=== PATIENT | male | born 1965 | race Two or more races ===

== ENCOUNTER 2020-05-26 16:55 | Inpatient (IN) | payer MEDICARE, MEDICAID ==
[~2020-05-26] VITALS: Ht 160 cm; Wt 83.1 kg
[2020-05-26] MEDS ORDERED: NITROGLYCERIN OINT 1GM/INCH UDPKT TD ONE (18:15)
[2020-05-26 18:31] LABS: BASOPHILS % 0.8 % (0.0-2.0); EOSINOPHILS % 1.1 % (0.0-5.0); HEMATOCRIT. 36.3 % (42.0-52.0); HEMOGLOBIN. 11.8 g/dL (14.0-18.0); LYMPHOCYTES % 20.3 % (20.0-50.0); MEAN CORPUSCULAR HEMOGLOBIN 30.9 pg (28.0-32.0); MEAN CORPUSCULAR VOLUME 95.1 fL (80.0-94.0); MEAN PLATELET VOLUME 9.2 fl (7.4-10.4); MONOCYTES % 8.7 % (2.0-8.0); NEUTROPHILS % 69.1 % (40.0-76.0); PLATELET 181 x1000/uL (130-400); RED BLOOD CELL COUNT 3.81 mill/uL (4.7-6.1); RED CELL DISTRIBUTION WIDTH 14.3 % (11.6-14.6)
[2020-05-26 18:34] LABS: CHLORIDE 104 mEq/L (98-107)
[2020-05-26 18:38] LABS: INR 2.7; PROTHROMBIN TIME 26.8 sec (9.6-11.0)
[2020-05-26 18:56] LABS: CLARITY URINE CLEAR (CLEAR); COLOR URINE YELLOW (YELLOW); KETONES URINE NEGATIVE (NEGATIVE); LEUKOCYTE ESTERASE URINE TRACE (NEGATIVE); NITRITE URINE NEGATIVE (NEGATIVE); OCCULT BLOOD URINE 1+ (NEGATIVE); PH URINE 5.5 (4.5-8.0); PROTEIN URINE 2+ (NEGATIVE); SPECIFIC GRAVITY URINE 1.012 (1.005-1.030); UROBILINOGEN URINE 0.2 E.U./dL (0.2-1.0)
[2020-05-26] MEDS ORDERED: FUROSEMIDE 20MG/2ML VIAL IVP ONE (19:30)
[2020-05-26] MEDS ORDERED: CEFTRIAXONE 1 G PREMIX 50 ML IV ONE (19:30)
[2020-05-26] MEDS ORDERED: INSU100I24 SQ (23:21)
[2020-05-26] MEDS ORDERED: LEVO25TA7 PO (23:21)
[2020-05-26] MEDS ORDERED: OMEP40CA12 PO (23:21)
[2020-05-26] MEDS ORDERED: ATOR20TA65 PO (23:21)
[2020-05-26] MEDS ORDERED: SACU1TAB4 PO (23:21)
[2020-05-26] MEDS ORDERED: FURO40TA5 PO (23:21)
[2020-05-26] MEDS ORDERED: CARV3.1242 PO (23:21)
[2020-05-26] MEDS ORDERED: ASPI-1158 PO (23:21)
[2020-05-26 23:23] VITALS: BP 104/77
[2020-05-26] MEDS ORDERED: SODI10PO PO (23:27)
[2020-05-27] VITALS (7 sets, daily range): BP systolic 80–118; BP diastolic 52–84
[2020-05-27 06:07] LABS: INR 2.6; PROTHROMBIN TIME 26.5 sec (9.6-11.0)
[2020-05-27 06:10] LABS: CHLORIDE 106 mEq/L (98-107)
[2020-05-27] MEDS: OMEPRAZOLE 20MG CAPSULE EXTENDED RELEASE PO SCH (06:18)
[2020-05-27] MEDS: BLOOD SUGAR DIAGNOSTIC STRIP TEST SCH ×4 (06:18→21:24)
[2020-05-27] MEDS: LEVOTHYROXINE SODIUM 25MCG TABLET PO SCH (06:18)
[2020-05-27 06:46] LABS: BASOPHILS % 0.8 % (0.0-2.0); EOSINOPHILS % 1.7 % (0.0-5.0); HEMATOCRIT. 33.1 % (42.0-52.0); HEMOGLOBIN. 10.8 g/dL (14.0-18.0); MEAN CORPUSCULAR HEMOGLOBIN 30.8 pg (28.0-32.0); MEAN CORPUSCULAR VOLUME 94.3 fL (80.0-94.0); MEAN PLATELET VOLUME 9.7 fl (7.4-10.4); MONOCYTES % 10.4 % (2.0-8.0); NEUTROPHILS % 60.1 % (40.0-76.0); PLATELET 175 x1000/uL (130-400); RED BLOOD CELL COUNT 3.51 mill/uL (4.7-6.1); RED CELL DISTRIBUTION WIDTH 14.4 % (11.6-14.6)
[2020-05-27] MEDS ORDERED: INSULIN LISPRO 100 UNITS/ML SUBCUT SCH ×2 (07:15→17:15)
[2020-05-27] MEDS: ASPIRIN 81MG EC TABLET PO SCH (08:44)
[2020-05-27] MEDS: ATORVASTATIN CALCIUM 20MG TABLET PO SCH ×2 (08:44→21:24)
[2020-05-27] MEDS ORDERED: FUROSEMIDE 40MG/4ML VIAL IVP NR (10:15)
[2020-05-27] MEDS ORDERED: ALBUMIN HUMAN 25GM/100ML (25%) IV NR (11:00)
[2020-05-27] MEDS ORDERED: CARVEDILOL 3.125 MG TABLET PO SCH (11:00)
[2020-05-27] MEDS ORDERED: DEXTROSE 50% WATER 50ML SYRINGE IV PRN ×2 (12:45)
[2020-05-27] MEDS: ENTRESTO PO SCH (13:10)
[2020-05-27] MEDS: INSULIN LISPRO 100 UNITS/ML SUBCUT SCH ×3 (13:11→21:00)
[2020-05-27] MEDS ORDERED: HEPARIN 5000 UNITS/ML VIAL SUBCUT SCH (14:00)
[2020-05-27 14:44] LABS: T4 FREE 1.3 ng/dL (0.76-1.46)
[2020-05-27] MEDS ORDERED: WARFARIN SODIUM 2MG TABLET PO SCH (18:00)
[2020-05-27] MEDS ORDERED: CEFTRIAXONE 1,000 MG in DEXTROSE 5% WATER 50 ML IV SCH (20:00)
[2020-05-27] MEDS: CARVEDILOL 3.125 MG TABLET PO SCH (21:00)
[2020-05-27] MEDS: INSULIN GLARGINE UD 100 UNITS/ML SYR SUBCUT SCH (21:37)
[2020-05-27] MEDS ORDERED: INSULIN GLARGINE UD 100 UNITS/ML SYR SUBCUT SCH (22:00)
[2020-05-28] VITALS: BP 109/74
[2020-05-28 04:00] VITALS: BP 93/60
[2020-05-28] MEDS: LEVOTHYROXINE SODIUM 25MCG TABLET PO SCH (06:34)
[2020-05-28] MEDS: BLOOD SUGAR DIAGNOSTIC STRIP TEST SCH ×4 (06:34→21:33)
[2020-05-28] MEDS: OMEPRAZOLE 20MG CAPSULE EXTENDED RELEASE PO SCH (06:34)
[2020-05-28] MEDS: INSULIN LISPRO 100 UNITS/ML SUBCUT SCH ×4 (06:35→21:57)
[2020-05-28 07:52] LABS: INR 2.2; PROTHROMBIN TIME 21.9 sec (9.6-11.0)
[2020-05-28 08:00] VITALS: BP 114/77
[2020-05-28] MEDS: ASPIRIN 81MG EC TABLET PO SCH (09:03)
[2020-05-28] MEDS: ATORVASTATIN CALCIUM 20MG TABLET PO SCH ×2 (09:03→21:54)
[2020-05-28] MEDS: FUROSEMIDE 40MG/4ML VIAL IVP SCH (09:03)
[2020-05-28] MEDS: CARVEDILOL 3.125 MG TABLET PO SCH ×2 (09:06→21:00)
[2020-05-28] MEDS: ENTRESTO PO SCH (09:08)
[2020-05-28 12:00] VITALS: BP 137/71
[2020-05-28 16:00] VITALS: BP 115/82
[2020-05-28 16:02] LABS: BASOPHILS % 1.1 % (0.0-2.0); EOSINOPHILS % 1.9 % (0.0-5.0); HEMOGLOBIN. 10.9 g/dL (14.0-18.0); LYMPHOCYTES % 19.5 % (20.0-50.0); MEAN CORPUSCULAR HEMOGLOBIN 30.9 pg (28.0-32.0); MEAN CORPUSCULAR VOLUME 96.5 fL (80.0-94.0); MEAN PLATELET VOLUME 9.7 fl (7.4-10.4); MONOCYTES % 11.7 % (2.0-8.0); NEUTROPHILS % 65.8 % (40.0-76.0); PLATELET 148 x1000/uL (130-400); RED BLOOD CELL COUNT 3.52 mill/uL (4.7-6.1); RED CELL DISTRIBUTION WIDTH 14.7 % (11.6-14.6)
[2020-05-28 16:08] LABS: CHLORIDE 104 mEq/L (98-107)
[2020-05-28] MEDS ORDERED: WARFARIN SODIUM 2MG TABLET PO SCH (18:00)
[2020-05-28 20:00] VITALS: BP 92/60
[2020-05-28] MEDS: INSULIN GLARGINE UD 100 UNITS/ML SYR SUBCUT SCH (21:58)
[2020-05-29] VITALS: BP 91/56
[2020-05-29 04:00] VITALS: BP 114/76
[2020-05-29] MEDS: BLOOD SUGAR DIAGNOSTIC STRIP TEST SCH ×4 (05:55→20:11)
[2020-05-29] MEDS: LEVOTHYROXINE SODIUM 25MCG TABLET PO SCH (05:56)
[2020-05-29] MEDS: INSULIN LISPRO 100 UNITS/ML SUBCUT SCH ×4 (06:16→21:57)
[2020-05-29 07:45] LABS: BASOPHILS % 0.8 % (0.0-2.0); EOSINOPHILS % 1.9 % (0.0-5.0); HEMATOCRIT. 32.4 % (42.0-52.0); HEMOGLOBIN. 10.7 g/dL (14.0-18.0); LYMPHOCYTES % 17.6 % (20.0-50.0); MEAN CORPUSCULAR HEMOGLOBIN 30.9 pg (28.0-32.0); MEAN CORPUSCULAR VOLUME 93.6 fL (80.0-94.0); MEAN PLATELET VOLUME 9.9 fl (7.4-10.4); MONOCYTES % 11.7 % (2.0-8.0); PLATELET 154 x1000/uL (130-400); RED BLOOD CELL COUNT 3.46 mill/uL (4.7-6.1); RED CELL DISTRIBUTION WIDTH 14.2 % (11.6-14.6)
[2020-05-29 07:51] LABS: INR 1.8; PROTHROMBIN TIME 18.7 sec (9.6-11.0)
[2020-05-29 08:00] VITALS: BP 115/81
[2020-05-29] MEDS: ASPIRIN 81MG EC TABLET PO SCH (08:33)
[2020-05-29] MEDS: ENTRESTO PO SCH (08:33)
[2020-05-29] MEDS: ATORVASTATIN CALCIUM 20MG TABLET PO SCH ×2 (08:33→21:46)
[2020-05-29] MEDS: FAMOTIDINE 20MG TABLET PO SCH (08:33)
[2020-05-29] MEDS: CARVEDILOL 3.125 MG TABLET PO SCH ×2 (08:33→21:00)
[2020-05-29] MEDS: FUROSEMIDE 40MG/4ML VIAL IVP SCH (09:39)
[2020-05-29] MEDS ORDERED: ALBUMIN HUMAN 12.5G/250ML (5%) IV NR (11:00)
[2020-05-29 12:00] VITALS: BP 97/60
[2020-05-29 16:00] VITALS: BP 104/70
[2020-05-29] MEDS ORDERED: WARFARIN SODIUM 3MG TABLET PO SCH (18:00)
[2020-05-29 20:00] VITALS: BP 93/57
[2020-05-29] MEDS ORDERED: INSULIN GLARGINE UD 100 UNITS/ML SYR SUBCUT SCH (22:00)
[2020-05-30] VITALS: BP 106/77
[2020-05-30 04:00] VITALS: BP 96/59
[2020-05-30] MEDS: BLOOD SUGAR DIAGNOSTIC STRIP TEST SCH ×4 (06:52→20:35)
[2020-05-30] MEDS: INSULIN LISPRO 100 UNITS/ML SUBCUT SCH ×4 (06:53→20:35)
[2020-05-30] MEDS: LEVOTHYROXINE SODIUM 25MCG TABLET PO SCH (06:54)
[2020-05-30 07:07] LABS: INR 1.7; PROTHROMBIN TIME 17.7 sec (9.6-11.0)
[2020-05-30 08:00] VITALS: BP 117/68
[2020-05-30] MEDS: ATORVASTATIN CALCIUM 20MG TABLET PO SCH ×2 (09:05→20:43)
[2020-05-30] MEDS: ASPIRIN 81MG EC TABLET PO SCH (09:05)
[2020-05-30] MEDS: FAMOTIDINE 20MG TABLET PO SCH (09:05)
[2020-05-30] MEDS: CARVEDILOL 3.125 MG TABLET PO SCH ×2 (09:05→20:34)
[2020-05-30] MEDS: FUROSEMIDE 40MG/4ML VIAL IVP SCH (09:05)
[2020-05-30] MEDS: ENTRESTO PO SCH (09:06)
[2020-05-30 12:00] VITALS: BP 110/67
[2020-05-30 16:00] VITALS: BP 97/68
[2020-05-30] MEDS ORDERED: WARFARIN SODIUM 2MG TABLET PO SCH (18:00)
[2020-05-30] MEDS ORDERED: WARFARIN SODIUM 1MG TABLET PO SCH (18:00)
[2020-05-30 21:32] VITALS: BP 99/68
[2020-05-30] MEDS: INSULIN GLARGINE UD 100 UNITS/ML SYR SUBCUT SCH (22:00)
[2020-05-31 00:28] VITALS: BP 106/74
[2020-05-31 04:00] VITALS: BP 112/77
[2020-05-31] MEDS: BLOOD SUGAR DIAGNOSTIC STRIP TEST SCH ×4 (06:16→21:56)
[2020-05-31 06:17] LABS: BASOPHILS % 0.7 % (0.0-2.0); HEMATOCRIT. 31.9 % (42.0-52.0); HEMOGLOBIN. 10.6 g/dL (14.0-18.0); LYMPHOCYTES % 24.6 % (20.0-50.0); MEAN CORPUSCULAR VOLUME 93.7 fL (80.0-94.0); MEAN PLATELET VOLUME 9.9 fl (7.4-10.4); MONOCYTES % 12.7 % (2.0-8.0); PLATELET 155 x1000/uL (130-400); RED BLOOD CELL COUNT 3.41 mill/uL (4.7-6.1); RED CELL DISTRIBUTION WIDTH 14.4 % (11.6-14.6)
[2020-05-31] MEDS: INSULIN LISPRO 100 UNITS/ML SUBCUT SCH ×4 (06:17→22:11)
[2020-05-31] MEDS: LEVOTHYROXINE SODIUM 25MCG TABLET PO SCH (06:36)
[2020-05-31 06:44] LABS: INR 1.8; PROTHROMBIN TIME 18.4 sec (9.6-11.0)
[2020-05-31 08:00] VITALS: BP 116/79
[2020-05-31] MEDS: FUROSEMIDE 40MG/4ML VIAL IVP SCH (08:21)
[2020-05-31] MEDS: FAMOTIDINE 20MG TABLET PO SCH (08:21)
[2020-05-31] MEDS: ATORVASTATIN CALCIUM 20MG TABLET PO SCH ×2 (08:22→21:31)
[2020-05-31] MEDS: ENTRESTO PO SCH (08:22)
[2020-05-31] MEDS: ASPIRIN 81MG EC TABLET PO SCH (08:22)
[2020-05-31] MEDS: CARVEDILOL 3.125 MG TABLET PO SCH ×2 (08:22→21:31)
[2020-05-31] MEDS ORDERED: SODIUM POLYSTYRENE SULFONATE 15 G/60 ML BOT PO NR (10:00)
[2020-05-31 12:00] VITALS: BP 115/86
[2020-05-31 16:00] VITALS: BP 111/76
[2020-05-31] MEDS ORDERED: WARFARIN SODIUM 4MG TABLET PO SCH (18:00)
[2020-05-31 20:00] VITALS: BP 115/78
[2020-05-31] MEDS: INSULIN GLARGINE UD 100 UNITS/ML SYR SUBCUT SCH (22:12)
[2020-06-01] VITALS: BP 108/51
[2020-06-01 04:00] VITALS: BP 105/61
[2020-06-01] MEDS: BLOOD SUGAR DIAGNOSTIC STRIP TEST SCH ×4 (06:45→21:00)
[2020-06-01] MEDS: LEVOTHYROXINE SODIUM 25MCG TABLET PO SCH (06:45)
[2020-06-01] MEDS: INSULIN LISPRO 100 UNITS/ML SUBCUT SCH ×4 (06:45→21:00)
[2020-06-01 07:12] LABS: INR 2.3
[2020-06-01 07:15] LABS: BASOPHILS % 0.8 % (0.0-2.0); EOSINOPHILS % 1.3 % (0.0-5.0); HEMATOCRIT. 35.1 % (42.0-52.0); HEMOGLOBIN. 11.9 g/dL (14.0-18.0); LYMPHOCYTES % 16.6 % (20.0-50.0); MEAN CORPUSCULAR HEMOGLOBIN 31.9 pg (28.0-32.0); MEAN CORPUSCULAR VOLUME 94.3 fL (80.0-94.0); MEAN PLATELET VOLUME 9.5 fl (7.4-10.4); MONOCYTES % 12.4 % (2.0-8.0); NEUTROPHILS % 68.9 % (40.0-76.0); PLATELET 163 x1000/uL (130-400); RED BLOOD CELL COUNT 3.72 mill/uL (4.7-6.1); RED CELL DISTRIBUTION WIDTH 14.3 % (11.6-14.6)
[2020-06-01 08:00] VITALS: BP 118/80
[2020-06-01] MEDS: FUROSEMIDE 40MG/4ML VIAL IVP SCH (09:10)
[2020-06-01] MEDS: ENTRESTO PO SCH (09:10)
[2020-06-01] MEDS: ASPIRIN 81MG EC TABLET PO SCH (09:10)
[2020-06-01] MEDS: ATORVASTATIN CALCIUM 20MG TABLET PO SCH ×2 (09:10→21:58)
[2020-06-01] MEDS: FAMOTIDINE 20MG TABLET PO SCH (09:10)
[2020-06-01] MEDS: CARVEDILOL 3.125 MG TABLET PO SCH ×2 (09:11→21:58)
[2020-06-01] MEDS ORDERED: INSU100I24 SQ (11:44)
[2020-06-01] MEDS ORDERED: WARF3TAB58 MT (11:44)
[2020-06-01] MEDS ORDERED: FURO40TA5 PO (11:44)
[2020-06-01 12:00] VITALS: BP 83/51
[2020-06-01 16:00] VITALS: BP 80/48
[2020-06-01] MEDS ORDERED: WARFARIN SODIUM 1MG TABLET PO SCH (18:00)
[2020-06-01 20:00] VITALS: BP 103/71
[2020-06-01] MEDS: INSULIN GLARGINE UD 100 UNITS/ML SYR SUBCUT SCH (22:00)
[2020-06-02] VITALS: BP 108/78
[2020-06-02 04:00] VITALS: BP 93/62
[2020-06-02] MEDS: LEVOTHYROXINE SODIUM 25MCG TABLET PO SCH (05:59)
[2020-06-02] MEDS: BLOOD SUGAR DIAGNOSTIC STRIP TEST SCH (05:59)
[2020-06-02] MEDS: INSULIN LISPRO 100 UNITS/ML SUBCUT SCH (06:17)
[2020-06-02 08:00] VITALS: BP 90/53
[2020-06-02] MEDS: FUROSEMIDE 40MG/4ML VIAL IVP SCH (08:29)
[2020-06-02] MEDS: CARVEDILOL 3.125 MG TABLET PO SCH (08:29)
[2020-06-02] MEDS: ATORVASTATIN CALCIUM 20MG TABLET PO SCH (08:29)
[2020-06-02] MEDS: ASPIRIN 81MG EC TABLET PO SCH (08:29)
[2020-06-02] MEDS: FAMOTIDINE 20MG TABLET PO SCH (08:29)
[2020-06-02] MEDS: ENTRESTO PO SCH (08:30)
[2020-06-02 09:34] VITALS: BP 90/53
== END 2020-06-02 12:10 | disposition home health service (06) | DRG 291 ==
LOC: ER 16:55 → 5WST 20:26 → EDBEDREQTM 20:31 → EDBEDREQ 20:31 → ENRESERV 20:50
PROVIDERS: ADMIT Internal Medicine; ATTEND Internal Medicine
DX: I13.0 Hypertensive heart and chronic kidney disease with heart failure and stage 1 through stage 4 chronic kidney disease, or unspecified chronic kidney disease (principal); I50.43 Acute on chronic combined systolic (congestive) and diastolic (congestive) heart failure; E43 Unspecified severe protein-calorie malnutrition; E87.1 Hypo-osmolality and hyponatremia; E87.2 Acidosis; I31.3 Pericardial effusion (noninflammatory); N17.9 Acute kidney failure, unspecified; J91.8 Pleural effusion in other conditions classified elsewhere; I42.9 Cardiomyopathy, unspecified; E11.22 Type 2 diabetes mellitus with diabetic chronic kidney disease; I25.10 Atherosclerotic heart disease of native coronary artery without angina pectoris; D64.9 Anemia, unspecified; E66.9 Obesity, unspecified; E11.65 Type 2 diabetes mellitus with hyperglycemia; I48.0 Paroxysmal atrial fibrillation; E03.9 Hypothyroidism, unspecified; E78.5 Hyperlipidemia, unspecified; I25.5 Ischemic cardiomyopathy; I34.0 Nonrheumatic mitral (valve) insufficiency; I27.20 Pulmonary hypertension, unspecified; K21.9 Gastro-esophageal reflux disease without esophagitis; N18.9 Chronic kidney disease, unspecified; N28.1 Cyst of kidney, acquired; Z79.4 Long term (current) use of insulin; Z79.899 Other long term (current) drug therapy; Z95.0 Presence of cardiac pacemaker; Z79.82 Long term (current) use of aspirin; I25.2 Old myocardial infarction; Z68.32 Body mass index [BMI] 32.0-32.9, adult; Z71.3 Dietary counseling and surveillance
CPT/HCPCS: 36415; 71045; 71250; 76705; 80048; 80053; 80076; 81003; 82270; 82962; 83036; 83735; 83880; 84439; 84443; 84484; 85025; 85044; 93005; 93306; 93970; 96365; 97116; 97162; 97535; 99285; J0696; J1815; J1940; J7060; P9041; P9047

== ENCOUNTER 2021-02-18 17:42 | Inpatient (IN) | payer MEDICARE, MEDICAID ==
[~2021-02-18] VITALS: Ht 160 cm; Wt 79.5 kg
[~2021-02-18 17:42] MED LIST: ASPI-1406 PO; ATOR20TA65 PO; CARV3.1242 PO; FURO40TA5 PO; INSU100I24 SQ; LEVO25TA7 PO; OMEP40CA12 PO; SACU1TAB4 PO; SODI10PO PO; WARF3TAB58 MT
[2021-02-18 18:59] LABS: BASOPHILS % 0.5 % (0.0-2.0); CHLORIDE 105 mEq/L (98-107); EOSINOPHILS % 0.9 % (0.0-5.0); HEMATOCRIT. 30.4 % (42.0-52.0); HEMOGLOBIN. 10.2 g/dL (14.0-18.0); LYMPHOCYTES % 17.7 % (20.0-50.0); MEAN CORPUSCULAR HEMOGLOBIN 32.4 pg (28.0-32.0); MEAN CORPUSCULAR VOLUME 96.9 fL (80.0-94.0); MEAN PLATELET VOLUME 10.1 fl (7.4-10.4); MONOCYTES % 12.4 % (2.0-8.0); NEUTROPHILS % 68.5 % (40.0-76.0); PLATELET 141 x1000/uL (130-400); RED BLOOD CELL COUNT 3.14 mill/uL (4.7-6.1); RED CELL DISTRIBUTION WIDTH 14.9 % (11.6-14.6)
[2021-02-18 19:03] LABS: INR 2.3; PROTHROMBIN TIME 23.5 sec (9.6-11.0)
[2021-02-18] MEDS ORDERED: FUROSEMIDE 40MG/4ML VIAL IVP ONE (19:15)
[2021-02-18] MEDS ORDERED: IPRATROPIUM/ALBUTEROL 0.5-3(2.5)MG/3ML NEB NEB PRN (22:15)
[2021-02-18] MEDS ORDERED: ACETAMINOPHEN 325MG TABLET PO PRN ×2 (22:15)
[2021-02-18] MEDS ORDERED: DOCUSATE SODIUM 100MG CAPSULE PO PRN (22:15)
[2021-02-18] MEDS ORDERED: ONDANSETRON HCL 4MG/2ML INJ IV PRN (22:15)
[2021-02-18] MEDS ORDERED: TRAMADOL 50MG TABLET PO PRN (22:15)
[2021-02-18] MEDS ORDERED: NITROGLYCERIN 0.4MG TABLET SL SL PRN (22:15)
[2021-02-18] MEDS ORDERED: METOLAZONE 10MG TABLET PO NR (22:15)
[2021-02-18] MEDS ORDERED: ZOLPIDEM TARTRATE 5MG TABLET PO PRN (22:15)
[2021-02-18] MEDS ORDERED: GUAIFENESIN 200MG/10ML SUGAR FREE UDC PO PRN (22:15)
[2021-02-18] MEDS ORDERED: DEXTROSE 50% WATER 50ML SYRINGE IV PRN (22:15)
[2021-02-18] MEDS ORDERED: MAGNESIUM/ALUMINUM HYDROXIDE/SIMETHICONE 30ML UDC PO PRN (22:15)
[2021-02-18] MEDS ORDERED: CLONIDINE 0.1MG TABLET PO PRN (22:15)
[2021-02-18 22:35] LABS: T4 FREE 1.46 ng/dL (0.76-1.46)
[2021-02-18 22:53] LABS: FOLIC ACID (FOLATE) SERUM > 20.00 ng/mL (>5.38)
[2021-02-18 23:00] LABS: VITAMIN B12 SERUM 1313 pg/mL (211-911)
[2021-02-18] MEDS: FAMOTIDINE 20MG TABLET PO SCH (23:16)
[2021-02-18] MEDS ORDERED: DEXTROSE 50% WATER 50ML SYRINGE IV ONE (23:30)
[2021-02-19] VITALS: BP 117/86
[2021-02-19 04:00] VITALS: BP 117/80
[2021-02-19] MEDS: INSULIN LISPRO 100 UNITS/ML SUBCUT SCH ×4 (05:37→20:49)
[2021-02-19] MEDS: BLOOD SUGAR DIAGNOSTIC STRIP TEST SCH ×4 (05:37→20:49)
[2021-02-19 06:45] LABS: INR 2.4; PROTHROMBIN TIME 24.5 sec (9.6-11.0)
[2021-02-19 06:47] LABS: EOSINOPHILS % 1.2 % (0.0-5.0); HEMATOCRIT. 30.2 % (42.0-52.0); HEMOGLOBIN. 9.9 g/dL (14.0-18.0); LYMPHOCYTES % 26.5 % (20.0-50.0); MEAN CORPUSCULAR HEMOGLOBIN 32.2 pg (28.0-32.0); MEAN CORPUSCULAR VOLUME 98.3 fL (80.0-94.0); MEAN PLATELET VOLUME 10.7 fl (7.4-10.4); MONOCYTES % 12.4 % (2.0-8.0); NEUTROPHILS % 58.9 % (40.0-76.0); PLATELET 130 x1000/uL (130-400); RED BLOOD CELL COUNT 3.07 mill/uL (4.7-6.1)
[2021-02-19 06:52] LABS: CHLORIDE 106 mEq/L (98-107)
[2021-02-19 07:01] LABS: PHOSPHORUS 3.3 mg/dL (2.5-4.9)
[2021-02-19 07:02] LABS: CREATINE KINASE 294 IU/L (39-308); CREATINE KINASE MB FRACTION 4.3 ng/mL (0.5-3.6)
[2021-02-19 08:00] VITALS: BP 96/62
[2021-02-19] MEDS: ASPIRIN 81MG EC TABLET PO SCH (09:36)
[2021-02-19] MEDS: CHOLECALCIFEROL (D3) 1000 UNIT TABLET PO SCH (09:36)
[2021-02-19] MEDS: ASCORBIC ACID 500 MG TABLET PO SCH ×2 (09:36→20:49)
[2021-02-19] MEDS: ZINC SULFATE 220 MG ( 50 ) CAPSULE PO SCH (09:36)
[2021-02-19] MEDS: FAMOTIDINE 20MG TABLET PO SCH (09:36)
[2021-02-19] MEDS: FUROSEMIDE 40MG/4ML VIAL IVP SCH ×2 (09:41→20:49)
[2021-02-19 12:00] VITALS: BP 105/76
[2021-02-19 16:00] VITALS: BP 101/62
[2021-02-19] MEDS ORDERED: WARFARIN SODIUM 1MG TABLET PO SCH (18:00)
[2021-02-19 20:25] VITALS: BP 96/64
[2021-02-19 20:35] LABS: CREATINE KINASE 285 IU/L (39-308)
[2021-02-19 20:36] LABS: CREATINE KINASE MB FRACTION 5.2 ng/mL (0.5-3.6)
[2021-02-19] MEDS: ATORVASTATIN CALCIUM 20MG TABLET PO SCH (20:49)
[2021-02-20 00:17] VITALS: BP 99/64
[2021-02-20 04:00] VITALS: BP 109/67
[2021-02-20] MEDS: BLOOD SUGAR DIAGNOSTIC STRIP TEST SCH ×4 (06:28→20:53)
[2021-02-20 07:04] LABS: INR 2.2; PROTHROMBIN TIME 21.8 sec (9.6-11.0)
[2021-02-20] MEDS: INSULIN LISPRO 100 UNITS/ML SUBCUT SCH ×4 (07:50→21:00)
[2021-02-20 08:00] VITALS: BP 138/84
[2021-02-20] MEDS: ASPIRIN 81MG EC TABLET PO SCH (08:09)
[2021-02-20] MEDS: CHOLECALCIFEROL (D3) 1000 UNIT TABLET PO SCH (08:09)
[2021-02-20] MEDS: FAMOTIDINE 20MG TABLET PO SCH (08:09)
[2021-02-20] MEDS: ZINC SULFATE 220 MG ( 50 ) CAPSULE PO SCH (08:09)
[2021-02-20] MEDS: FUROSEMIDE 40MG/4ML VIAL IVP SCH ×2 (08:10→21:00)
[2021-02-20] MEDS: ASCORBIC ACID 500 MG TABLET PO SCH ×2 (08:10→21:16)
[2021-02-20 10:54] LABS: EOSINOPHILS % 1.8 % (0.0-5.0); HEMATOCRIT. 32.4 % (42.0-52.0); HEMOGLOBIN. 10.7 g/dL (14.0-18.0); LYMPHOCYTES % 17.5 % (20.0-50.0); MEAN CORPUSCULAR HEMOGLOBIN 32.3 pg (28.0-32.0); MEAN CORPUSCULAR VOLUME 97.9 fL (80.0-94.0); MEAN PLATELET VOLUME 10.5 fl (7.4-10.4); MONOCYTES % 10.8 % (2.0-8.0); NEUTROPHILS % 68.9 % (40.0-76.0); PLATELET 174 x1000/uL (130-400); RED BLOOD CELL COUNT 3.31 mill/uL (4.7-6.1); RED CELL DISTRIBUTION WIDTH 14.9 % (11.6-14.6)
[2021-02-20 12:00] VITALS: BP 113/76
[2021-02-20 16:00] VITALS: BP 93/56
[2021-02-20] MEDS: TAMSULOSIN HCL 0.4MG SR CAPSULE PO SCH (16:10)
[2021-02-20] MEDS ORDERED: WARFARIN SODIUM 1MG TABLET PO SCH (18:00)
[2021-02-20 20:00] VITALS: BP 92/57
[2021-02-20] MEDS: ATORVASTATIN CALCIUM 20MG TABLET PO SCH (21:16)
[2021-02-21] VITALS: BP 100/64
[2021-02-21 04:00] VITALS: BP 94/53
[2021-02-21 06:37] LABS: CHLORIDE 97 mEq/L (98-107)
[2021-02-21 06:47] LABS: PHOSPHORUS 3.7 mg/dL (2.5-4.9)
[2021-02-21 06:58] LABS: HEMATOCRIT. 27.8 % (42.0-52.0); HEMOGLOBIN. 9.3 g/dL (14.0-18.0); MEAN CORPUSCULAR HEMOGLOBIN 32.1 pg (28.0-32.0); MEAN CORPUSCULAR VOLUME 95.7 fL (80.0-94.0); MEAN PLATELET VOLUME 10.1 fl (7.4-10.4); PLATELET 135 x1000/uL (130-400); RED BLOOD CELL COUNT 2.91 mill/uL (4.7-6.1); RED CELL DISTRIBUTION WIDTH 14.7 % (11.6-14.6)
[2021-02-21 06:58] LABS: PROTHROMBIN TIME 19.9 sec (9.6-11.0)
[2021-02-21] MEDS: BLOOD SUGAR DIAGNOSTIC STRIP TEST SCH ×4 (07:55→21:46)
[2021-02-21 08:00] VITALS: BP 110/65
[2021-02-21] MEDS: CHOLECALCIFEROL (D3) 1000 UNIT TABLET PO SCH (08:47)
[2021-02-21] MEDS: ASCORBIC ACID 500 MG TABLET PO SCH ×2 (08:47→21:49)
[2021-02-21] MEDS: FAMOTIDINE 20MG TABLET PO SCH (08:47)
[2021-02-21] MEDS: ZINC SULFATE 220 MG ( 50 ) CAPSULE PO SCH (08:47)
[2021-02-21] MEDS: ASPIRIN 81MG EC TABLET PO SCH (08:47)
[2021-02-21] MEDS: TAMSULOSIN HCL 0.4MG SR CAPSULE PO SCH (08:48)
[2021-02-21] MEDS: INSULIN LISPRO 100 UNITS/ML SUBCUT SCH ×5 (08:52→21:00)
[2021-02-21] MEDS: FUROSEMIDE 40MG/4ML VIAL IVP SCH ×2 (09:00→21:00)
[2021-02-21 12:00] VITALS: BP 119/97
[2021-02-21 13:08] LABS: NUCLEATED RED BLOOD CELLS 1 /100 WBC; PLATELET ESTIMATE NORMAL
[2021-02-21 16:00] VITALS: BP 105/68
[2021-02-21] MEDS ORDERED: WARFARIN SODIUM 2MG TABLET PO NR (18:00)
[2021-02-21 20:00] VITALS: BP 90/51
[2021-02-21] MEDS: ATORVASTATIN CALCIUM 20MG TABLET PO SCH (21:49)
[2021-02-22] VITALS: BP 94/54
[2021-02-22 04:00] VITALS: BP 103/57
[2021-02-22 06:04] LABS: INR 1.9; PROTHROMBIN TIME 19.7 sec (9.6-11.0)
[2021-02-22 06:05] LABS: BASOPHILS % 0.9 % (0.0-2.0); EOSINOPHILS % 2.2 % (0.0-5.0); HEMATOCRIT. 28.7 % (42.0-52.0); HEMOGLOBIN. 9.7 g/dL (14.0-18.0); LYMPHOCYTES % 18.2 % (20.0-50.0); MEAN CORPUSCULAR HEMOGLOBIN 32.1 pg (28.0-32.0); MEAN CORPUSCULAR VOLUME 95.2 fL (80.0-94.0); MEAN PLATELET VOLUME 9.5 fl (7.4-10.4); MONOCYTES % 14.7 % (2.0-8.0); PLATELET 145 x1000/uL (130-400); RED BLOOD CELL COUNT 3.01 mill/uL (4.7-6.1); RED CELL DISTRIBUTION WIDTH 14.3 % (11.6-14.6)
[2021-02-22] MEDS: BLOOD SUGAR DIAGNOSTIC STRIP TEST SCH (06:27)
[2021-02-22 08:00] VITALS: BP 95/56
[2021-02-22] MEDS: FUROSEMIDE 40MG/4ML VIAL IVP SCH (08:35)
[2021-02-22] MEDS: ASCORBIC ACID 500 MG TABLET PO SCH (08:35)
[2021-02-22] MEDS: CHOLECALCIFEROL (D3) 1000 UNIT TABLET PO SCH (08:36)
[2021-02-22] MEDS: ASPIRIN 81MG EC TABLET PO SCH (08:36)
[2021-02-22] MEDS: FAMOTIDINE 20MG TABLET PO SCH (08:36)
[2021-02-22] MEDS: TAMSULOSIN HCL 0.4MG SR CAPSULE PO SCH (08:36)
[2021-02-22] MEDS: ZINC SULFATE 220 MG ( 50 ) CAPSULE PO SCH (08:36)
[2021-02-22] MEDS: INSULIN LISPRO 100 UNITS/ML SUBCUT SCH (08:37)
[2021-02-22 12:00] VITALS: BP 93/56
[2021-02-22 12:26] VITALS: BP 93/56
[2021-02-22] MEDS ORDERED: WARFARIN SODIUM 2MG TABLET PO NR (18:00)
== END 2021-02-22 13:00 | disposition home health service (06) | DRG 682 ==
LOC: ER 17:42 → 6WST 21:16 → SUPCPDRO 22:02 → ENRESERV 22:32
PROVIDERS: ADMIT Internal Medicine; ATTEND Internal Medicine
DX: N17.0 Acute kidney failure with tubular necrosis (principal); J96.00 Acute respiratory failure, unspecified whether with hypoxia or hypercapnia; I50.43 Acute on chronic combined systolic (congestive) and diastolic (congestive) heart failure; I13.0 Hypertensive heart and chronic kidney disease with heart failure and stage 1 through stage 4 chronic kidney disease, or unspecified chronic kidney disease; E44.1 Mild protein-calorie malnutrition; E87.1 Hypo-osmolality and hyponatremia; E87.2 Acidosis; I42.9 Cardiomyopathy, unspecified; N13.30 Unspecified hydronephrosis; N18.9 Chronic kidney disease, unspecified; D63.8 Anemia in other chronic diseases classified elsewhere; E11.22 Type 2 diabetes mellitus with diabetic chronic kidney disease; D72.819 Decreased white blood cell count, unspecified; Z79.4 Long term (current) use of insulin; E03.9 Hypothyroidism, unspecified; E78.00 Pure hypercholesterolemia, unspecified; E78.5 Hyperlipidemia, unspecified; I25.2 Old myocardial infarction; I48.0 Paroxysmal atrial fibrillation; Z95.810 Presence of automatic (implantable) cardiac defibrillator; I51.3 Intracardiac thrombosis, not elsewhere classified; Z68.31 Body mass index [BMI] 31.0-31.9, adult; Z79.82 Long term (current) use of aspirin; Z79.01 Long term (current) use of anticoagulants; Z53.29 Procedure and treatment not carried out because of patient's decision for other reasons; N40.0 Benign prostatic hyperplasia without lower urinary tract symptoms
CPT/HCPCS: 36415; 71045; 76770; 80048; 80053; 80061; 82550; 82553; 82575; 82607; 82746; 82962; 83036; 83540; 83550; 83735; 83880; 84100; 84153; 84439; 84443; 84484; 85025; 93005; 93970; 97110; 97162; 97166; 99285; J1815; J1940; A4315; G0103

== ENCOUNTER 2021-03-30 19:08 | Emergency (ER) | payer MEDICARE, MEDICAID ==
[~2021-03-30] VITALS: Ht 160 cm; Wt 75.0 kg
[2021-03-30 20:28] VITALS: BP 107/75
[2021-03-30] MEDS ORDERED: ACYCLOVIR 400 MG TABLET PO ONE (22:00)
[2021-03-30] MEDS ORDERED: FLUORESCEIN SODIUM 1MG/STRIP RIGHTEYE ONE (22:00)
[2021-03-30] MEDS ORDERED: TETRACAINE 0.5% OPHTH DROPS 4ML RIGHTEYE ONE (22:00)
[2021-03-30] MEDS ORDERED: VALA100044 MT (22:47)
[2021-03-30] MEDS ORDERED: VALACYCLOVIR HCL 500MG TABLET PO SCH (23:00)
== END 2021-03-30 22:57 | disposition home or self-care (01) ==
LOC: ER 19:08
DX: B02.9 Zoster without complications (principal); E11.9 Type 2 diabetes mellitus without complications; I10 Essential (primary) hypertension; E78.00 Pure hypercholesterolemia, unspecified; Z79.899 Other long term (current) drug therapy; Z98.890 Other specified postprocedural states
CPT/HCPCS: 99283